=== PATIENT | male | born 1985 | race Caucasian/White ===

== ENCOUNTER 2023-09-26 10:26 | Emergency (ER) | payer OTHER, SELFPAY ==
[2023-09-26 10:27] VITALS: BP 138/82; PULSE 95; RESP 14; TEMP 36.6; O2SAT 97; BMI 39.9
--- NOTE | 2023-09-26 10:39 | EX.ED.DYSGE1 ---
HPI History of Present Illness Chief Complaint: Fever Detail of Chief Complaint: Patient presents with several days of fever Tmax 104.1 ?F Informant: patient Onset/Context/Timing Onset: Days Context: Sudden Onset Timing: Continuous Quality: Headache, photophobia, arthralgias and abdominal rash Location: Generalized and right upper quadrant region Current Severity: Mild Maximum Severity: Severe Worsened by: Nothing specific Relieved by: Nothing Associated Symptoms Associated Symptoms: Nausea, nonproductive cough Narrative Narrative: Patient is a 37-year-old male. He has noticed if he can medical history he has no allergies. He presents with several days of headache, photophobia, fever with Tmax of 104.1 ?F, arthralgias and noted rash this morning right upper quadrant region. He was bit by a tick 2 weeks ago. He denies sore throat. He denies thirst. He denies chest discomfort. He denies urologic symptoms. He denies neurologic symptoms. Prior similar symptoms: No Recent Illness/Hospitalization: No PFSH PFSH Medical History no medical history no medical history Home Medications naproxen 500 mg tablet 500 mg PO BID PRN #20 tabs 11/22/15 [Rx Last Taken Unknown] doxycycline monohydrate 100 mg capsule 100 mg PO BID #28 CAPSULES 09/26/23 [Rx Last Taken Unknown] Allergy/AdvReac Type Severity Reaction Status Date / Time No Known Allergies Allergy Verified 09/26/23 10:28 Surgical History no surgical history no surgical history Social History (Updated 09/26/23 @ 10:[address] Stan Kang MD) Smoking Status: Current every day smoker tobacco type: cigarettes substance use type: does not use ROS ROS ED Constitutional Constitutional ED: Reports chills and fever(s); Denies subjective, sweats or weight loss Eyes Eyes: Reports other Details: Reports of photophobia. ; Denies blurry vision, change in vision or diplopia ENT ENT ED: Denies ear pain, rhinorrhea or sore throat Cardiovascular Cardiovascular: Denies chest pain, orthopnea, palpitations or racing heartbeat Respiratory/Chest Respiratory/Chest: Reports cough; Denies dyspnea, dyspnea on exertion or orthopnea Gastrointestinal Gastrointestinal: Reports nausea; Denies abdominal pain, constipation, diarrhea or melena Genitourinary Genitourinary ED: Denies dysuria, hematuria or urinary frequency Musculoskeletal Musculoskeletal: Reports arthralgias and neck pain; Denies back pain or myalgias Integumentary Reports rash Neurologic Neurologic: Reports headache(s); Denies paresthesias Hematologic/Lymphatic Hematologic/Lymphatic: Reports systems reviewed and no addt'l complaints, except as documented EXAM Physical Exam Const Vital Signs: 09/26/23 10:27 09/26/23 10:31 Temperature 97.8 F Temperature Source Temporal Pulse Rate 95 Respiratory Rate 14 Respiratory Pattern Normal Blood Pressure 138/82 H Blood Pressure Mean 100 Pulse Ox 97 Oxygen Delivery Method Room Air Positive well nourished and well developed Constitutional Narrative: As I entered the room patient had lights out. He was wearing a surgical mask. General Appearance ED: well developed and NAD; Negative for pallor HEENT Reports dry mucous membranes HEENT Narrative: Head is atraumatic and normocephalic. Ears normal. External auditory canal has significant of wax. The portion of the right and left TM that was visualized was normal. Nares patent with no discharge. He complained of mild discomfort with tapping of the frontal and maxillary sinuses. Posterior pharynx out erythema or exudate. Uvula is midline. Mouth ED: Yes dry mucous membranes Mouth: dry mucous membranes Eyes PERRL and EOMs intact bilaterally Eyes Narrative: There is no nystagmus. General Eye ED: Negative for pale conjunctiva or scleral icterus Neck no lymphadenopathy, supple and no JVD Neck Narrative: Patient has no meningeal findings. Chest Wall inspection of chest normal and palpation of chest normal Resp normal respiratory effort and clear to auscultation bilaterally Cardio regular rate, regular rhythm, S1 normal heart sound, S2 normal heart sound and no murmurs GI non-tender, non-distended and no masses; Negative for hepatosplenomegaly GI Narrative: Patient has what appears to be a herald rash involving the right upper quadrant of the abdomen. Auscultation: hypoactive bowel sounds Palpation: soft Back/Spine no CVA tenderness Cervical Spine: Negative for cervical spine tenderness Thoracic Spine / Upper Back: Negative for thoracic spinal tenderness Lumbar Spine / Lower Back: Negative for lumbar spinal tenderness Extremity normal to inspection General Extremety ED: Negative for edema or tenderness General Extremity: Negative for edema Neuro oriented x3, CN's II-XII intact bilaterally and no sensory deficits noted Sensorium / Orientation: alert Motor Exam: strength 5/5 throughout Psych mental status grossly normal Skin No no rashes or lesions noted, no wounds and skin turgor normal Skin Narrative: Patient has a large erythematous oval-shaped rash. General Skin Exam: Negative for jaundice or pallor Rashes: rashes noted MDM MDM MDM Narrative Medical decision making narrative: In light of patient having tick bite 2 weeks ago now having symptoms of fever, chills headache for several days and now noticing rash. This raises concern that patient may have Lyme's disease. Lyme's screen was obtained as well as other baseline blood work. This may also represent viral infection. Because patient is complained of cough has been nonproductive for 1 month and is a smoker chest x-ray was obtained to assess for pneumonia or lesion. Lab Data Attestation: I reviewed the patient's lab results. Lab results narrative: CBC is unremarkable. There is slight shift with 76% neutrophils. White count is 7.3 electrolyte panel for slight elevation of glucose of 117 with normal CO2 anion gap. Liver enzymes are unremarkable. Alkaline phosphatase was slightly elevated 1-2. Labs: Laboratory Results - last 24 hr 09/26/23 11:07 WBC 7.3 RBC 5.19 Hgb 14.3 Hct 44.8 MCV 86.3 MCH 27.6 MCHC 31.9 L RDW Std Deviation 40.6 RDW Coeff of Jamie 12.9 Plt Count 258 MPV 10.7 Immature Gran % (Auto) 0.300 Neut % (Auto) 76.4 H Lymph % (Auto) 12.4 L [place] % (Auto) 10.5 H Eos % (Auto) 0.0 Baso % (Auto) 0.4 Absolute Neuts (auto) 5.6 Absolute Lymphs (auto) 0.91 Nucleated RBC % 0 Sodium 134 L Potassium 4.2 Chloride 103 Carbon Dioxide 26.0 Anion Gap 5 BUN 14 Creatinine 0.99 Estim Creat Clear Calc 116.47 Est GFR (MDRD) Af Amer 108 Est GFR (MDRD) Non-Af 89 BUN/Creatinine Ratio 14.1 Glucose 117 H Calcium 8.5 Total Bilirubin 0.50 AST 36 ALT 48 Alkaline Phosphatase 122 H Total Protein 7.2 Albumin 3.1 L Globulin 4.1 Albumin/Globulin Ratio 0.8 L Treatment and Re-Evaluation :: With history of tick bite complains of fever chills myalgias and herald rash we will treat for Lyme's disease with doxycycline for 14 days. Since he has no physician listed will refer him to infectious disease Dr. Joya for follow-up. Discharge Plan Triage Chief Complaint: Fever ED Provider: Stan Kang Dx/Rx/DC Orders Clinical Impression: Acute Lyme disease Prescriptions: New doxycycline monohydrate 100 mg capsule 100 mg PO BID Qty: 28 0RF No Action naproxen 500 MG tablet 500 mg PO BID PRN Qty: 20 0RF Primary Care Provider: Odette Grijalva Referrals: Odette Grijalva MD [Primary Care Provider] - Mingo Joya MD [Med Staff - Active Staff] - 5-7 Days Disposition Disposition: Home, Self Care
[2023-09-26 11:20] LABS: Absolute Lymphocyte Count 0.91 X10^3/uL (0.83-4.51); Absolute Neutrophil Count 5.6 X10^3/uL (2.0-7.7); Basophil# 0.03 X10^3/uL; Basophil% 0.4 % (0-1); Hematocrit 44.8 % (40-54); Hemoglobin 14.3 g/dL (13.0-16.5); Lymphocyte # 0.91 X10^3/ul (0.83-4.51); Lymphocyte % 12.4 % (19-41); Mean Corp Hgb Conc 31.9 g/dL (32-36); Mean Corpuscular Hgb 27.6 pg (27.0-32.0); Mean Corpuscular Volume 86.3 fL (80-94); Mean Platelet Vol. 10.7 fl (6.2-12.0); Monocyte# 0.77 X10^3/uL; Monocyte% 10.5 % (0-10); NRBC Flagged by Analyzer 0 % (0-5); Neutrophil % 76.4 % (47-70); POSITIVE COUNT YES; Platelet Count 258 K/mm3 (150-450); RBC Distribution Width CV 12.9 % (11.6-14.6); RBC Distribution Width SD 40.6 fl (35.1-43.9); Red Blood Count 5.19 M/mm3 (4.6-6.2); White Blood Count 7.3 K/mm3 (4.4-11.0)
[2023-09-26 11:33] LABS: ALB/GLOB Ratio 0.8 RATIO (0.9-2.4); AST(SGOT) 36 U/L (15-37); Alanine Aminotransfer ALT/SGPT 48 U/L (16-61); Albumin, Serum 3.1 g/dL (3.2-5.0); Alkaline Phosphatase 122 U/L (45-117); Anion Gap 5 (5-15); BUN 14 mg/dL (7-18); BUN/Creat Ratio 14.1 RATIO (10-20); Calcium,Total 8.5 mg/dL (8.5-10.1); Chloride 103 mmol/L (98-107); Creatinine, Serum 0.99 mg/dL (0.70-1.30); EST Glomerular Filtration Rate 89 mL/min (>60); Est Glom Filt Rate - Afr Amer 108 mL/min (>60); Estimated Creatinine Clearance 116.47 ml/min; Globulin 4.1 g/dL (2.2-4.2); Glucose 117 mg/dL (74-106); Potassium 4.2 mmol/L (3.5-5.1); Protein, Total 7.2 g/dL (6.4-8.2); Sodium Level 134 mmol/L (136-145)
[2023-09-26] MEDS: 0.9% Normal Saline (1000mL) 1,000 ML 1000 ML IV (11:42)
[2023-09-26] MEDS: Ondansetron 4 MG/2 ML Vial IV (11:42)
--- NOTE | 2023-09-26 11:48 | RAD_ITS ---
STUDY: X-RAY CHEST REASON FOR EXAM: Male, 37 years old. Nonproductive cough and fever TECHNIQUE: PA and lateral views of the chest. COMPARISON: None. FINDINGS: Elevation of the anterior aspect of the right hemidiaphragm. Minimal increased markings in the anterior segment of the right lower lobe. This may represent atelectasis. There is no demonstrated pleural abnormality. Normal size heart. Normal mediastinum and derik. Normal visualized pulmonary arteries. Normal visualized aortic arch and descending thoracic aorta. Normal visualized thoracic spine. Normal visualized ribs, clavicles, and shoulders. There is no demonstrated abnormality of the visualized soft tissue structures of the upper abdomen. RAD/Chest PA and Lateral IMPRESSION: Mild degree of increased markings in the anterior segment of the right lower lobe. This most likely represents atelectasis. Electronically Signed: Roberto Damon MD at 12:23 EDT ,
[2023-09-26 12:21] VITALS: PULSE 80; RESP 16
[2023-09-27 09:08] LABS: Lyme Scn Total Ab w/Rflx Negative (Negative)
== END 2023-09-26 12:29 | disposition home or self-care (01) ==
PROVIDERS: Emergency Provider Emergency Medicine; PCP Internal Medicine; Visit Provider Emergency Medicine
DX: A69.20 Lyme disease, unspecified (principal); F17.210 Nicotine dependence, cigarettes, uncomplicated
CPT/HCPCS: 71046; 80053; 85025; 86618; 96361; 96374; 99283; J7030; A4216; J2405